=== PATIENT | female | born 1995 | race Caucasian/White ===

== ENCOUNTER 2024-12-17 15:14 | Outpatient (CLI) | payer MEDICAID, SELFPAY ==
[2024-12-17 15:06] VITALS: BMI 36.8
[2024-12-17 15:19] VITALS: BP 115/72; PULSE 112
[2024-12-17 15:49] VITALS: BP 107/61; PULSE 97
[2024-12-17 16:11] VITALS: BP 116/68; PULSE 104
[2024-12-17 17:32] VITALS: BP 116/68; PULSE 103
== END 2024-12-17 18:16 | disposition home or self-care (01) ==
LOC: OPOB 15:14 → OBGYN 15:16
PROVIDERS: PCP Family Medicine; Visit Provider Family Medicine
DX: O26.899 Other specified pregnancy related conditions, unspecified trimester (principal); Z3A.00 Weeks of gestation of pregnancy not specified; R10.9 Unspecified abdominal pain
CPT/HCPCS: 59025; 99211

== ENCOUNTER 2025-01-02 10:18 | Inpatient (IN) | payer MEDICAID, SELFPAY ==
[2025-01-02] VITALS (82 sets, daily range): BP systolic 99–125; BP diastolic 58–85; PULSE 71–116; RESP 15–17; TEMP 36.5–36.9; O2SAT 97–100; BMI 36.8
[2025-01-02] MEDS: lactated ringers 1,000 ML 999 ML IV ×2 (10:34→11:39)
[2025-01-02 11:05] LABS: Basophils % 0.2 %; Eosinophils % 0.1 %; Hematocrit 31.2 % (36-47); Lymphocytes # 1.4 10^3/uL (0.8-4.8); Lymphocytes % 13.8 %; Mean Corpuscular HGB Conc 31.1 g/dL (30-55); Mean Corpuscular Hemoglobin 24.7 pg (27-33); Mean Corpuscular Volume 79.4 fl (85-98); Mean Platelet Volume 9.7 fL (7.4-10.4); Monocytes # 0.6 10^3/uL (0.2-0.9); Monocytes % 5.8 %; Neutrophils # 8.02 10^3/uL (1.8-7.7); Neutrophils % 79.7 %; Nucleated Red Blood Cells % 0 %; Platelet Count 240 10^3/cmm (157-399); Red Blood Count 3.93 10^6/uL (3.85-5.65); Red Cell Distribution Width 14.1 % (12.1-15.1); White Blood Count 10.06 10^3/uL (3.29-11.43)
[2025-01-02] MEDS: ROPivacaine syringe 100 MG/50 ML SYRINGE 10 MG EPIDURAL ×2 (11:58→15:01)
--- NOTE | 2025-01-02 11:59 | ANES.PREANE2 ---
Pre-Anesthetic Assessment Height/Weight: Height 1.65 m Temp Pulse BP Pulse Ox O2 Del Method 97.7 F 87 120/75 98 Room Air 01/02/25 11:15 01/02/25 11:52 01/02/25 11:52 01/02/25 11:52 01/02/25 10:55 Preop Diagnosis: IUP epidural Familial anesthetic complications: none Was Beta Olivier taken within 24 hours: N/A Was Clonidine taken within 24 hours: N/A Social No alcohol and No tobacco Exam alert and oriented x 3 Airway Submandibular: within normal limits Cervical ROM: within normal limits Mallampati: Class II Dentition: full History/ROS No significant complaints Anesthetic Plan ASA status: 2 Anesthesia: Anesthesia Evaluation and Regional (specify below) Risk of > 500 ml blood loss (7ml/kg in children): Yes, adequate IV access and fluids planned Medications/Allergies Home Medications ?Medication ?Instructions ?Recorded ?Confirmed ?Last Taken ?Type amburion-[id number] 1 mg 1 tab PO DAILY 12/17/24 01/02/25 12/16/24 History tablet Allergies Allergy/AdvReac Type Severity Reaction Status Date / Time sina Allergy ADR-Diarrhe Verified 01/02/25 11:21 a tramadol Allergy ADR-Dizzine Verified 01/02/25 11:20 ss Current Medications Generic Name Dose Route Start Last Admin Trade Name Freq PRN Reason Stop Dose Admin Lactated Ringer's 1,000 mls @ 999 mls/hr 01/02/25 10:19 01/02/25 11:39 Lactated Ringers IV 999 mls/hr .Q1H1M PRN Administration See label comments Ropivacaine 100 mg in 50 mls @ 10 mls/hr 01/02/25 10:30 01/02/25 11:58 Naropin Syringe EPIDURAL 10 mls/hr .Q5H JOSE LUIS Administration PFSH Anesthesia Female Reproductive History : 3 Data Anesthesia 01/02/25 10:30 Short CBC 01/02/25 Range/Units 10:30 WBC 10.06 (3.29-11.43) 10^3/uL Hgb 9.70 L (11.27-16.99) g/dL Hct 31.2 L (36-47) % MCV 79.4 L (85-98) fl Plt Count 240 (157-399) 10^3/cmm Neut % (Auto) 79.7 % Neut # (Auto) 8.02 H (1.8-7.7) 10^3/uL
--- NOTE | 2025-01-02 12:00 | ANES.PROC ---
Anesthesia Procedures Procedure/Date: 01/02/25 Epidural: Time Out Performed: Yes Consents Signed: Procedure Consent Consent: from patient, risks and benefits reviewed and patient agrees to proceed Lumbar Level: L3-L4 Epidural position: sitting Epidural procedure: sterile prep of area, 1% lidocaine to numb the area, 18 g needle, negative for paresthesia passed, test dose given, 1.5% xylocaine 1:200k epi, placed PCEA, no systemic response, sterile dressing applied, L.U.D. no apparent complications and 0.2% Ropiavacaine @ mls/hr (10) Additional Comments: EDA at 5.5, negative heme/CSF with aspiration. taped at 13 at skin. pt states contractions feeling better. pt requests no fentanyl use if bolus needed during labor.
--- NOTE | 2025-01-02 12:36 | PM.OPHPUD ---
Labor & Delivery H&P Update Date of Procedure: January 02, 2025 Date H&P Performed: 01/01/25 Admission Diagnosis: IUP at 40 weeks 1 day gestation Active labor Preop diagnosis: IUP Planned procedure: Expectant management of labor and delivery
[2025-01-02] MEDS: dextrose 5%-lactated ringers 1,000 ML 125 ML IV (13:14)
[2025-01-02] MEDS: oxytocin 30 UNIT/500 ML BAG 600 UNIT IV (15:55)
--- NOTE | 2025-01-02 16:05 | PM.DELIVERY ---
Delivery Note: Date of delivery: January 02, 2025 Procedure: Normal spontaneous vaginal delivery Estimated blood loss (mL): 300 Pre-Delivery Course: The patient had routine care at [facility] after 21 weeks gestation. She was a transfer from [place]. There were no complications during the . labs: Blood type A+ antibody negative, hepatitis B nonreactive, hepatitis C nonreactive, HIV nonreactive, rubella nonimmune, GC chlamydia negative, RPR nonreactive, Q low risk, anatomy ultrasound within normal limits, she passed her glucose tolerance test, she was GBS negative. Delivery: This is a 29-year-old G3, P2 at 40 weeks 1 day gestation who presented to labor and delivery in active labor. She received an epidural for pain management. She underwent artificial rupture of membranes with thin meconium. Rupture of membranes was approximately 4 hours prior to delivery. The patient only had to push through 1 contraction. She had a normal spontaneous vaginal delivery of a viable female infant weight 8 pounds 3 ounces, Apgars 8 and 9 over an intact perineum. The was suctioned at delivery and placed on the mother's chest. After 70 seconds the cord was clamped and cut. The placenta was delivered grossly intact and normal to inspection. There were no lacerations. Mother and infant were doing well after delivery. A&P Assessment and plan (1) Normal spontaneous vaginal delivery: PDMP PDMP Reviewed: Not Reviewed Coding Level of Care Code Acute Code for Chg Fwd Diagnoses Normal spontaneous vaginal delivery O80
[2025-01-02] MEDS: acetaminophen 325 mg Tablet 650 MG PO (17:56)
[2025-01-02] MEDS: docusate sodium 100 mg Capsule PO (17:56)
[2025-01-02] MEDS: lanolin oint 7 gm 1 APPLIC TOPICAL (17:58)
[2025-01-02] MEDS: benzocaine-menthol 78 gm Canister 1 SPRAY TOPICAL (17:58)
[2025-01-02] MEDS: ibuprofen 800 mg tablet PO (20:35)
[2025-01-03 04:00] VITALS: BP 111/70; PULSE 83; RESP 16; TEMP 36.8; O2SAT 98
[2025-01-03 05:02] LABS: Hematocrit 27.7 % (36-47); Mean Corpuscular HGB Conc 30.7 g/dL (30-55); Mean Corpuscular Hemoglobin 24.4 pg (27-33); Mean Corpuscular Volume 79.4 fl (85-98); Platelet Count 198 10^3/cmm (157-399); Red Blood Count 3.49 10^6/uL (3.85-5.65); Red Cell Distribution Width 14.2 % (12.1-15.1); White Blood Count 9.94 10^3/uL (3.29-11.43)
[2025-01-03] MEDS: docusate sodium 100 mg Capsule PO (09:07)
[2025-01-03] MEDS: ibuprofen 800 mg tablet PO (09:07)
[2025-01-03] MEDS: PRENATAL VIT NO.130/IRON/FOLIC 1 EACH TABLET PO (09:07)
[2025-01-03 10:00] VITALS: BP 124/73; PULSE 71; RESP 17; TEMP 36.6; O2SAT 98
[2025-01-03] MEDS: acetaminophen 325 mg Tablet 650 MG PO (11:30)
--- NOTE | 2025-01-03 13:44 | ANE.PACU2 ---
Inpatient post-anesthesia follow up: Airway intact: Yes Vital signs: Temperature 97.9 F Pulse Rate 71 Respiratory Rate 17 Blood Pressure 124/73 Pulse Oximetry 98 Oxygen Delivery Me thod Room Air Oxygen Flow Rate Fraction of Inspir ed Oxygen Hydration adequate: Yes Nausea and vomiting: No Pain level: 1 Mental status: Baseline Epidural Start/End: Epidural Start Date: 01/02/25 Epidural Start Time: 11:33 Epidural End Date: 01/02/25 Epidural End Time: 17:25
--- NOTE | 2025-01-03 15:13 | P.DS_ITS ---
Discharge Providers Date of Admission: 01/02/25 10:18 Date of Discharge: January 03, 2025 Attending Provider at Admission: Radha Hughes MD Attending Provider at Discharge: Radha Hughes MD Primary Care Provider: Radha Hughes MD Diagnoses at Discharge Discharge Diagnosis (1) Normal spontaneous vaginal delivery: Status: Acute Reason for Visit Reason for Visit: ctx Hospital Course Hospital Course This is a 29-year-old G3 now P3 who was admitted in active labor. She had a normal spontaneous vaginal delivery of a viable female . She has done well . She is ambulating, tolerating a regular diet, has had decreased vaginal bleeding and is comfortable with discharge home Physical Exam Narrative: Alert and oriented resting in bed holding the infant, heart regular rate and rhythm, lungs clear to auscultation bilaterally, abdomen is soft and nontender, fundus is firm, extremities have trace edema but no calf tenderness Urinary Catheter Management: Storm Latex: Cath Placed During This Visit: yes, but has since been removed by the nurse Reason for Continuing Indwelling Catheter: Decision to DC Catheter Urinary Catheter Date of Insertion: 01/02/25 Urinary Catheter Time of Insertion: 13:00 Date Urinary Catheter Removed: 01/02/25 Time Urinary Catheter Discontinued: 15:46 Discharge Data Studies Completed and Pending Laboratory Results WBC 9.94 10^3/uL (3.29-11.43) 01/03/25 04:40 RBC 3.49 10^6/uL (3.85-5.65) L 01/03/25 04:40 Hgb 8.50 g/dL (11.27-16.99) L 01/03/25 04:40 Hct 27.7 % (36-47) L 01/03/25 04:40 MCV 79.4 fl (85-98) L 01/03/25 04:40 MCH 24.4 pg (27-33) L 01/03/25 04:40 MCHC 30.7 g/dL (30-55) 01/03/25 04:40 RDW 14.2 % (12.1-15.1) 01/03/25 04:40 Plt Count 198 10^3/cmm (157-399) 01/03/25 04:40 MPV 10.0 fL (7.4-10.4) 01/03/25 04:40 Neut % (Auto) 79.7 % 01/02/25 10:30 Lymph % (Auto) 13.8 % 01/02/25 10:30 [place] % (Auto) 5.8 % 01/02/25 10:30 Eos % (Auto) 0.1 % 01/02/25 10:30 Baso % (Auto) 0.2 % 01/02/25 10:30 Neut # (Auto) 8.02 10^3/uL (1.8-7.7) H 01/02/25 10:30 Lymph # (Auto) 1.4 10^3/uL (0.8-4.8) 01/02/25 10:30 [place] # (Auto) 0.6 10^3/uL (0.2-0.9) 01/02/25 10:30 Eos # (Auto) 0.0 10^3/uL (0.0-0.8) 01/02/25 10:30 Baso # (Auto) 0.0 10^3/uL (0.0-0.1) 01/02/25 10:30 Nucleated RBC % (auto) 0 % 01/02/25 10:30 Nucleated RBCs # 0.0 /100WBC 01/02/25 10:30 Blood Type A Positive 01/02/25 10:30 Rho(D) Type Rh positive 01/02/25 10:30 Antibody Screen Negative 01/02/25 10:30 Vitals Last Vital Signs Temp 97.9 F 01/03/25 10:00 Pulse 71 01/03/25 10:00 Resp 17 01/03/25 10:00 BP 124/73 01/03/25 10:00 Pulse Ox 98 01/03/25 10:00 O2 Del Method Room Air 01/03/25 10:00 Discharge Plan Discharge Patient Disposition: Home Condition: Stable Prescriptions: Continued 1 mg Tablet 1 tab PO DAILY Discharge Orders: Discharge Order (Routine); Ordered 01/03/25 Ordered By: Radha Hughes Referrals: Radha Hughes MD [Primary Care Provider, [facility]] - 02/14/25 10:30 am Discharge Diet: Usual diet Discharge Activity: Limit activity as instructed Patient Instructions: Depression (DC), Opioid Safety (DC), Preeclampsia and Eclampsia After Delivery (GEN), Hemorrhage (DC), OB Discharge Report, OB Food/Drug Interaction Guide, OB Care at Home, Opioid Safety, OB Vaginal Deliveries, Abnormal Bleeding Activity Restrictions/Additional Instructions: Nothing per vagina for 6 weeks Discharge Attestations Time Spent in Discharge Care*: less than 30 min Quality Metrics Clinical Quality Measures [ No reported AMI, CVA or VTE this stay] Coding Level of Care Code Acute Code for Chg Fwd Diagnoses Normal spontaneous vaginal delivery O80
[2025-01-03 16:50] VITALS: BP 129/75; PULSE 85; RESP 18; TEMP 36.7; O2SAT 97
--- NOTE | 2025-01-03 17:00 | PC.NURSE ---
discussed rubella immunity status with pt. Discussed she was non immune to measles, mumps and rubella. Educated pt that she is at risk for catching these diseases that can be prevented through the MMR vaccine. Also reported the impact her immunity status could have on her . Pt declined vaccine, states she doesn't vaccinate .
== END 2025-01-03 16:50 | disposition home or self-care (01) | DRG 807 ==
LOC: OPOB 10:18 → OBGYN 10:18
PROVIDERS: Admitting Provider Family Medicine; PCP Family Medicine; Visit Provider Family Medicine
DX: O48.0 Post-term pregnancy (principal); Z37.0 Single live birth; Z3A.40 40 weeks gestation of pregnancy; O77.0 Labor and delivery complicated by meconium in amniotic fluid
CPT/HCPCS: 36415; 51702; 59409; 85025; 85027; 86850; 86900; J2590; J2795; J7120; J7121; J9999